=== PATIENT | female | born 1985 | race Caucasian/White ===

== ENCOUNTER → 2019-04-18 | Outpatient (CLI) | payer OTHER, SELFPAY ==
--- NOTE | 2019-04-15 | IMM_PTH ---
PATIENT: JORDYN GOODWIN LOC: [facility] U#:[id number] AGE/SX: 33/F ROOM: RE04/18/[address]: Dr. Kenton Chester MD : 1985 BED: DIS: 04/18/2019 SPEC #: [id number] RECD: 04/20/19 11:22 STATUS: YAS ZHANG #: [id number] ZI: 04/15/19 00:[address]: Kenton Chester DEPT: IMMUNOHISTOCHEMISTRY RECD BY: Haley Gavin ENTERED: 04/20/19 11:23 SP TYPE: IMMUNO OTHR DR: No Primary Care Phys Tissues: Left wrist Procedures: SMA (add) CD31 (add) CD34 (add) DESMIN (add) FACTOR VIII (add) MELAN-A (add) Vimentin (initial) S-100 (add) PHYSICIAN & INSTITUTION [place] [id number] SPECIMEN INFORMATION: Tissue Source: Left wrist mass Clinical Info: Left wrist cyst Specimen Number: [id number] CPT code: 33515, 29094 x7 METHODOLOGY: Deparaffinized sections of prefer/formalin-fixed tissue or PAP/DQ stained slides are incubated with monoclonal/polyclonal antibodies/oligonucleotide probes. Localization is made via biotin free immunoperoxidase method. Appropriate controls are performed and reacted as expected. Results on target cell population are indicated in the following table: RESULTS: ANTIBODY / CLONE RESULT Vimentin (V9) positive CD31 (ADRIAN/70A) negative Factor VIII (R Ag) negative CD34 (QBEnd-10) negative Actin (1A4) negative Desmin (CE-R-11) negative Melan A (A103) negative S-100 (4C4.9) positive These tests were developed and their performance characteristics determined by [facility]. They may not have been cleared or approved by the [place] Food and Drug Administration. The FDA has determined that such clearance or approval is not necessary. The above immunohistochemical/dualISH markers are ordered and reviewed by the Pathologist. INTERPRETATION: Left wrist mass, excision: Consistent with schwannoma. RONNA:laya 04/20/19
--- NOTE | 2019-04-15 15:35 | CYST_PTH ---
PATIENT: JORDYN GOODWIN LOC: [facility] U#:[id number] AGE/SX: 33/F ROOM: RE04/18/[address]: Dr. Kenton Chester MD : 1985 BED: DIS: 04/18/2019 SPEC #: [id number] RECD: 04/18/19 14:55 STATUS: YAS LEATHA #: [id number] ZI: 04/15/19 15:[address]: Kenton Chester DEPT: SURGICAL PATHOLOGY RECD BY: Brody Covarrubias ENTERED: 04/19/19 09:23 SP TYPE: Cyst OTHR DR: No Primary Care Phys WAS Tissues: Left wrist Procedures: Surgery Specimen Level IV HEADER OPERATION: Excision cyst left wrist PRE-OP DIAGNOSIS: Left wrist cyst TISSUE SUBMITTED: Left wrist mass MICROSCOPIC DIAGNOSIS Left wrist mass, excision: Consistent with Schwannoma. See comment. RONNA:laya 04/20/19 COMMENT Immunohistochemistry ([id number]) supports the above diagnosis. Case has been reviewed in consultation with Dr. De Souza who concurs with the above diagnosis. IDC:AM MICROSCOPIC DESCRIPTION Slides are reviewed. GROSS DESCRIPTION Received is one container labeled with the patient's name and not further designated. The specimen consists of a raymond-white nodule measuring 1.1 x 1 x 1 cm. The specimen is inked, serially sectioned and reveals raymond, solid cut surfaces. The entire specimen is submitted in one cassette. / SJ:rg 04/19/19 TC:1 CPT: 45434
== END | disposition home or self-care (01) ==
PROVIDERS: Referring Provider Specialist; Visit Provider Specialist
DX: L72.9 Follicular cyst of the skin and subcutaneous tissue, unspecified (principal)
CPT/HCPCS: 88304; 88305; 88341; 88342; J7030